=== PATIENT | female | born 1965 | race Caucasian/White ===

== ENCOUNTER 2016-12-27 20:34 | Emergency (ER) | payer OTHER ==
[~2016-12-27] VITALS: Ht 162.6 cm; Wt 108.9 kg
[2016-12-27 20:40] VITALS: BP_SYST 138
--- NOTE | 2016-12-27 20:40 | NUR ---
Patient to ER bed 6 to gown for evaluation. Side rails up. Report given to MICK TORRES.
--- NOTE | 2016-12-27 20:50 | NUR ---
Iris STERILE PROCESSING MANAGER at bedside to evaluate patient,
--- NOTE | 2016-12-27 20:50 | NUR ---
LMP 2 weeks ago per patient.
--- NOTE | 2016-12-27 20:53 | NUR ---
Patient to ED for evaluation of pain and redness to left arm from a cat bite which occured earlier today. Patient is awake , alert, and oriented with no acute distress noted. Patient able to move arm without difficulty, peripheral pulses present. Patient has been evaluated by Iris LUMBER STACKER OPERATOR awaiting orders. Will continue to observe and assess.
[2016-12-27] MEDS ORDERED: IBUPROFEN 800 MG TABLET PO ONE (21:00)
[2016-12-27] MEDS ORDERED: DIPH-TET-PERTUS Vaccine 0.5 ML VIAL (ADACEL) I.M. ONE (21:00)
[2016-12-27] MEDS ORDERED: AMOXICILLIN/CLAVULANATE POTASSIUM 875 MG TABLET PO ONE (21:00)
--- NOTE | 2016-12-27 21:30 | NUR ---
NO adverse reation noted to medication.
--- NOTE | 2016-12-27 21:30 | NUR ---
Patient given written and verbal discharge instructions and verbalizes understanding. ER MD discussed with patient the results and treatment provided. Patient in stable condition. ID arm band removed. Rx of Augmentin, Motrin given. Patient educated on pain management and to follow up with PMD. Pain Scale 1. Opportunity for questions provided and answered.
== END 2016-12-27 21:31 | disposition home or self-care (01) ==
LOC: SED 20:34
DX: S51.852A Open bite of left forearm, initial encounter (principal); I10 Essential (primary) hypertension; F32.9 Major depressive disorder, single episode, unspecified; W55.01XA Bitten by cat, initial encounter; Y93.89 Activity, other specified; Y92.89 Other specified places as the place of occurrence of the external cause; Y99.8 Other external cause status
CPT/HCPCS: 90715; 99283